=== PATIENT | male | born 1940 | race Caucasian/White ===

== ENCOUNTER 2017-08-12 11:46 | Inpatient (IN) | payer OTHER ==
--- NOTE | 2017-08-12 11:59 | ED Physician Documentation ---
Dyspnea - HISTORIAN Historian: patient - HPI Chief Complaint: Near Syncope Additional Information: 77yo white male who states he came into the ED for dyspnea and syncopal episodes. Has been having some SOB for about 3 years. statest hat he has been doing fairly well until today where he became more SOB. Denies any cough, chest pain/pressure. Denies any wheezing. No fever or chills noted. Is not on oxygen therapy at home. Patient's son relates that he has had 2-3 falls related to getting up at patient 's son over the weekend. Has had 2-3 more episodes over the last 2 days. States that he seems to get dizzy when he changes position some of the time but not all the time. Patient was brought to the ED for further evaluation. Patient denies any discomfort at this time. Patient does seem confused some of the time. He lives at home by himself. Duration: better Initiating Event: denies: upper respiratory illness, out of meds Severity: moderate Exacerbated By: change in position, exertion Associated Symptoms: dizziness, light-headedness. denies: chills, fever, sweating, chest pain, chest discomfort, bloody cough, productive cough, heart racing, leg pain, calf pain - ROS CONST: no problems - PAST HX Lung Disease: COPD, other (seizure disorder) Cardiac Disease: CAD PE Risk Factors: hypertension, other (GERDs) Other History: diabetes Type 2 Immunizations: other Allergies/Adverse Reactions: Allergies Allergy/AdvReac Type Severity Reaction Status Date / Time No Known Allergies Allergy Verified 08/12/17 12:37 Home Medications: Ambulatory Orders Medication Instructions Recorded Divalproex Sodium [Depakote] 4 tab PO DAILY 08/12/17 Isosorbide Mononitrate [Imdur] 2 tab PO DAILY 08/12/17 Pantoprazole Sodium [Protonix] 1 tab PO DAILY 08/12/17 Phenytoin [Dilantin] 2 tab PO QID 08/12/17 Rosuvastatin Calcium [Crestor] 1 tab PO DAILY 08/12/17 Valsartan 1 tab PO DAILY 08/12/17 gliPIZIDE [Glucotrol] 1 tab PO DAILY 08/12/17 Acetaminophen [Tylenol Extra 500 mg PO Q4H PRN tablet 08/18/17 Strength] Azithromycin [Zithromax] 250 mg PO DAILY #3 tablet 08/18/17 Cefdinir 300 mg PO BID #14 capsule 08/18/17 Metoprolol Tartrate [Lopressor] 1 tab PO BID #0 08/18/17 predniSONE [Deltasone] 10 mg PO DIRECTED #31 tablet 08/18/17 - SOCIAL HX Smoking History: non-smoker Alcohol Use: none Drug Use: none - FAMILY HX Family History: no significant history, other (mother 89yo with CAD, Father 92yo advanced age, CAD) - REVIEWED ASSESSMENTS Nursing Assessment Reviewed: Yes Vitals Reviewed: Yes Progress - Progress Progress: 14:20 patient continues to rest quietly - EKG/XRAY/CT EKG: NSR, RBBB, nonspecific ST T wave chg ED Results Lab/Radiology - Radiology Radiology Impressions: Examination: CT head without contrast History: CONFUSION AND WEAKNESS SINCE FALL ON 08/10/17 (Hx) / POST FALL CONFUSION (DICOM Hx) Comparison exam: None available Technique: Noncontrast head CT protocol. Findings: Ventricles and sulci are prominent. Cerebrocerebellar parenchyma demonstrates periventricular low attenuation consistent with small vessel disease. No evidence for parenchymal hemorrhage. No evidence for mass or mass effect. No midline shift. No extra axial fluid collections. Partial visualization of the paranasal sinuses demonstrate scattered mucous thickening. Mastoid air cells, orbits, skull and scalp without gross irregularity. Impression: Age related changes. No acute parenchymal process. No hemorrhage. Examination: Portable chest History: Evaluate lungs. DYSPNEA, COUGH (Hx) Comparison exam: None available. Findings: Single view of the chest demonstrates a hypoventilated inspiratory effort resulting in crowding of the cardiac and mediastinal silhouette. Tortuous aorta. Mild linear fullness at the lung bases bilaterally. No blunting of the costophrenic margins. Left-sided cardiac pacemaker. Articular degenerative changes. Impression: Poor inspiratory effort resulting in crowding of the basilar interstitium/vasculature. No evidence for effusion. Dyspnea Physical Exam - EXAM General Appearance: alert, mild distress EENT: eye inspection normal, ENT inspection normal Neck: nml inspection Respiratory: no pain on inspiration, speaks full sentences, respiratory distress (mild) CVS: reg. rate & rhythm, no murmur, no gallop, no friction rub, pulses full, pulses equal Abdomen: non-tender, no organomegaly, no distention, no ascites Neuro/Psych: oriented x3, CN's nml as tested, motor nml, sensation nml, mood/ affect nml Discharge Clincal Impression: Pneumonia Qualifiers: Laterality: bilateral Lung location: lower lobe of lung Condition: Stable Disposition: 09 ADMITTED INPATIENT Decision to Admit: [id number] Date of Decison to Admit: 08/11/17 Decision Time: 16:05
[2017-08-12 12:34] LABS: MEAN CORPUSCULAR HEMOGLOBIN 30.5 pg (28.0-34.0); MEAN CORPUSCULAR VOLUME 92.8 fl (80.0-100.0)
[2017-08-12 12:35] LABS: BASOPHILS % 0.9 (0.0-1.5); MONOCYTES % 5.8 % (0.0-11.0); NEUTROPHILS # 5.4 # k/uL (1.4-7.7)
[2017-08-12 12:41] LABS: eGFR (African) > 60; eGFR (Non-African) > 60
--- NOTE | 2017-08-12 13:19 | Diagnostic Imaging Report ---
EAN FELIPE [facility] [address] [facility] [address] [place], [place]. [address] Report Submission Date: Aug 12, 2017 1:01:56 PM SALES PERFORMANCE MANAGER Patient Study Name: KELSEA FLANAGAN Date: Aug 12, 2017 12:38:17 PM SALES PERFORMANCE MANAGER Modality Type: CT\SR Gender: M Description: CT HEAD W/O CONTRAST : 40 Institution: [facility] Physician: AEN FELIPE Examination: CT head without contrast History: CONFUSION AND WEAKNESS SINCE FALL ON 08/10/17 (Hx) / POST FALL CONFUSION (DICOM Hx) Comparison exam: None available Technique: Noncontrast head CT protocol. Findings: Ventricles and sulci are prominent. Cerebrocerebellar parenchyma demonstrates periventricular low attenuation consistent with small vessel disease. No evidence for parenchymal hemorrhage. No evidence for mass or mass effect. No midline shift. No extra axial fluid collections. Partial visualization of the paranasal sinuses demonstrate scattered mucous thickening. Mastoid air cells, orbits, skull and scalp without gross irregularity. Impression: Age related changes. No acute parenchymal process. No hemorrhage. Electronically signed on Aug 12, 2017 1:01:56 PM SALES PERFORMANCE MANAGER by: Artur REYES
[2017-08-12] MEDS ORDERED: 0.9 % SODIUM CHLORIDE 0 ML IV ONE (13:39)
[2017-08-12] MEDS ORDERED: 0.9 % SODIUM CHLORIDE 500 ML IV SCH ×2 (14:00→16:00)
--- NOTE | 2017-08-12 14:16 | Diagnostic Imaging Report ---
EAN FELIPE [facility] [address] [facility] [address] [address] Report Submission Date: Aug 12, 2017 1:31:15 PM STUDENT SPECIALIST Patient Study Name: KELSEA FLANAGAN Date: Aug 12, 2017 1:12:41 PM STUDENT SPECIALIST Modality Type: DX Gender: M Description: CHEST : 40 Institution: [facility] Physician: EAN FELIPE Examination: Portable chest History: Evaluate lungs. DYSPNEA, COUGH (Hx) Comparison exam: None available. Findings: Single view of the chest demonstrates a hypoventilated inspiratory effort resulting in crowding of the cardiac and mediastinal silhouette. Tortuous aorta. Mild linear fullness at the lung bases bilaterally. No blunting of the costophrenic margins. Left-sided cardiac pacemaker. Articular degenerative changes. Impression: Poor inspiratory effort resulting in crowding of the basilar interstitium/vasculature. No evidence for effusion. Electronically signed on Aug 12, 2017 1:31:15 PM STUDENT SPECIALIST by: Artur REYES
[2017-08-12] MEDS ORDERED: cefTRIAXone SODIUM 1 GM VIAL ONE (15:37)
[2017-08-12] MEDS: cefTRIAXone SODIUM 1 GM in 0.9 % SODIUM CHLORIDE 100 ML IV SCH (15:50)
--- NOTE | 2017-08-12 16:00 | Diagnostic Imaging Report ---
EAN FELIPE [facility] [address] [facility] [address] [address] Report Submission Date: Aug 12, 2017 3:16:55 PM BOBBIN CLEANER HAND Patient Study Name: KELSEA FLANAGAN Date: Aug 12, 2017 2:18:57 PM BOBBIN CLEANER HAND Modality Type: CT\SR Gender: M Description: : 40 Institution: [facility] Physician: EAN FELIPE Examination: CT chest pulmonary embolism History: DYSPNEA; ELEVATED D DIMER; PE PROTOCOL (Hx) / ELEVATED D DIMER; DYSPNEA (DICOM Hx) Comparison exam: Plain film chest dated 12 August 2017. Technique: CT chest pulmonic pulmonary embolism protocol. Findings: No evidence for luminal filling defect within the main pulmonary arteries to the 3rd order branch vessels bilaterally. Limited evaluation of the basilar vasculature due to infiltrates. Thoracic aorta without aneurysmal dilation. No evidence for dissection flap. Peripheral atherosclerotic disease and mural thickening. Bibasilar scarring and infiltrates. Posterior pleural thickening. Apical emphysematous changes. No mediastinal or hilar mass or pathologic adenopathy. Cardiac silhouette not enlarged. No pericardial effusion. Osseous structures demonstrate degenerative changes. Lower neck structures and axilla regions are without gross irregularity. Numerous renal peripelvic cysts. Liver demonstrates diffuse low attenuation. Right hepatic lobe cyst. No other acute upper abdominal abnormality. Impression: No evidence for pulmonary embolism by CT criteria. No evidence for thoracic aortic dissection or abnormality. Lung base parenchymal scarring and infiltrates. Pleural thickening without gross effusion. Electronically signed on Aug 12, 2017 3:16:55 PM BOBBIN CLEANER HAND by: Artur REYES
[2017-08-12] MEDS: IPRATROPIUM/ALBUTEROL SULFATE 3 ML AMPUL.NEB NEB SCH ×2 (16:37→20:48)
[2017-08-12 17:00] VITALS: BMI 34.5
--- NOTE | 2017-08-12 17:33 | History and Physical Report ---
History of Present Illnes - History of Present Illness Reason for Visit: syncope and dyspnea History of Present Illness: 77yo white male who states he came into the ED for dyspnea and syncopal episodes. Has been having some SOB for about 3 years. statest hat he has been doing fairly well until today where he became more SOB. Denies any cough, chest pain/pressure. Denies any wheezing. No fever or chills noted. Is not on oxygen therapy at home. Patient's son relates that he has had 2-3 falls related to getting up at patient 's son over the weekend. Has had 2-3 more episodes over the last 2 days. States that he seems to get dizzy when he changes position some of the time but not all the time. Patient denies any tachycardia bradycardia. Patient denies any previous syncopal episode. Patient does have a seizure disorder but states that the episodes were not like his usual seizures. Patient only has approximately one seizure every six years. Patient is diabetic that he denies any hypoglycemic episodes. Patient has been taken his anticonvulsant medications. Patient is currently taking antihypertensive medication. Patient was brought to the ED for further evaluation. Patient denies any discomfort at this time. Patient does seem confused some of the time. He lives at home by himself. 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 (last seizure 4-5 years ago) Gastrointestinal: GERD Endocrine: Diabetes (type 2) - Past Surgical History Past Surgical History: Other (cardiac stenting) - Past Family History Mother Family History: CAD, (89yo) Father Family History: CAD, (92yo advanced age) - Past Social History Smoke: # pack years (60-70 pack year history), No, Quit (1989) Occupation: retired Alcohol: None Drugs: None Lives: Other (with significant other) - Health Maintenance Health Maintenance: Influenza Vaccine, Pneumococcal Vaccine Influenza Vaccine: Current for this Influenza Season Pneumonia Vaccine: Yes Resuscitation Status: Resusciation Status Resuscitation Status Do Not Resuscitate - Unable to Obtain History Unable to Obtain: Yes Review of Systems - Review of Systems Constitutional: negative: Fever, Chills, Weakness Eyes: negative: pain, vision change ENT: negative: Ear Pain, Ear Discharge, Nose Pain, Nose Discharge, Nose Congestion, Mouth Pain, Mouth Swelling, Throat Pain, Throat Swelling Respiratory: Cough, Dry, Shortness of Breath, SOB with Excertion. negative: Hemoptysis, Pleuritic Pain, Sputum, Wheezing Cardiovascular: Orthopnea, Light Headedness. negative: Chest Pain, Palpitations , Paroxysmal Noc. Dyspnea, Edema Gastrointestinal: negative: Nausea, Vomiting, Abdominal Pain, Diarrhea, Constipation, Melena, Hematochezia Genitourinary: negative: Dysuria, Frequency, Incontinence, Hematuria, Retention Musculoskeletal: negative: Neck Pain, Shoulder Pain, Arm Pain, Back Pain Skin: negative: Rash, Lesions Neurological: Seizures. negative: Weakness, Numbness, Incoordination, Change in Speech, Confusion - Medications/Allergies Allergies/Adverse Reactions: Allergies Allergy/AdvReac Type Severity Reaction Status Date / Time No Known Allergies Allergy Verified 08/12/17 12:37 Home Medications: Home Medications Divalproex Sodium [Depakote] 4 tab PO DAILY 08/12/17 Isosorbide Mononitrate [Imdur] 2 tab PO DAILY 08/12/17 Pantoprazole Sodium [Protonix] 1 tab PO DAILY 08/12/17 Phenytoin [Dilantin] 2 tab PO QID 08/12/17 Rosuvastatin Calcium [Crestor] 1 tab PO DAILY 08/12/17 Valsartan 1 tab PO DAILY 08/12/17 gliPIZIDE [Glucotrol] 1 tab PO DAILY 08/12/17 Current Inpatient Medications: Current Inpatient Medications Albuterol/Ipratropium (Duoneb) 3 ml NEB Q4 [facility] Last Admin: 08/12/17 16:37 Dose: 3 ml Enoxaparin Sodium (Lovenox) 30 mg SQ QD [facility] Stop: 08/25/17 17:01 Glipizide (Glucotrol) mg PO DAILY [facility] Sodium Chloride (Normal Saline) 500 mls @ 1,000 mls/hr IV .Q1H [facility] Last Admin: 08/12/17 15:20 Dose: 1,000 mls/hr Ceftriaxone Sodium 1 gm/ (Sodium Chloride) 100 mls @ 200 mls/hr IV Q24H [facility] Last Admin: 08/12/17 15:50 Dose: 200 mls/hr Sodium Chloride (Normal Saline) 1,000 mls @ 100 mls/hr IV Q10H [facility] Insulin Human Regular (Humulin R) 0 - 12 unit SQ CHEMX3 [facility] PRN Reason: Protocol Isosorbide Mononitrate (Imdur) mg PO DAILY [facility] Miscellaneous (Chem Sticks) 1 each CHEMQID [facility] Phenytoin Sodium (Dilantin) 200 mg PO QID [facility] Exam - Exam Vital Signs: Vital Signs (72 hours) 08/12/17 08/12/17 15:59 16:00 Temperature 97.9 F Pulse Rate 81 Pulse Rate [ 78 Left Pulse ox] Pulse Rate [ 76 Right] Respiratory 18 19 Rate Blood Pressure 133/55 133/64 [Right Arm] O2 Sat by Pulse 95 92 Oximetry General: Alert, Oriented to Person, Oriented to Place, Oriented to Time, Cooperative, Other (patient seems to have some mild confusion at times. ) HEENT: Atraumatic, PERRLA, EOMI, Mouth Mucous membr. moist/[place], Nose Mucous membr. moist/[place], Poor Dentition Neck: Normal Range of Motion Carotids: WNL Thyroid: WNL Lungs: Normal air movement, Speaks full Sentences, Rales (in bases bialterally) . No: Wheezes, Rhonchi Cardiovascular: Regular rate, Normal S1, Normal S2, No murmurs. No: Rubs, Murmur Abdomen: Normal bowel sounds, Soft, No tenderness, No hepatospenomegaly, No masses Integumentary: Normal, [place], Warm, Dry Extremities: No clubbing, No cyanosis, No edema, Normal pulses, No tenderness/ swelling Neurological: Normal gait, Normal speech, Strength Equal Bilat, Normal tone, Sensation intact, Cranial nerves 3-12 NL, Reflexes 2+ Psych/Mental Status: Mental status NL, Mood NL, Appropriate Affect, Intact Judgment Assessment/Plan - Assessment/Plan (1) Pneumonia Status: Acute Current Visit: Yes Qualifiers: Laterality: bilateral Lung location: lower lobe of lung Assessment: Mild hypoxemia Plan: IV antibiotics, HFN treatments, supplemental oxygen therapy as needed. (2) Orthostatic hypotension Status: Acute Current Visit: Yes Plan: Will hold blood pressure meds. Will try to hydrate well. (3) COPD (chronic obstructive pulmonary disease) Status: Chronic Current Visit: Yes Qualifiers: Emphysema type: panlobular (4) Seizure Status: Chronic Current Visit: Yes Plan: will continue with anticonvulsant meds. monitor for seizure activity. (5) Diabetes type 2, controlled Status: Chronic Current Visit: Yes Qualifiers: Diabetes mellitus complication status: without complication Diabetes mellitus termite exterminator insulin use: without [facility] use Qualified Code(s): E11.9 - Type 2 diabetes mellitus without complications Assessment: Will continue with home meds. Monitor blood sugars. Will start sliding scale insulin. VTE Assessment - RISK FACTOR SCORE VTE RISK FACTOR SCORES: AGE OVER 60 YEARS, ANTICIPATED BED CONFINEMENT OR IMMOBILIZATION > 24 HOURS - RISK VTE MODERATE RISK: SCORE OF 2 (RISK PROXIMAL DVT 2-4%) PROPHYAXIS NEEDED ( Prophalxis needed)
[2017-08-12] MEDS: 0.9 % SODIUM CHLORIDE 1,000 ML IV SCH (18:09)
[2017-08-12] MEDS: PHENYTOIN SODIUM EXTENDED 100 MG CAPSULE PO SCH ×2 (18:09→19:39)
[2017-08-12] MEDS: ENOXAPARIN SODIUM 30 MG/0.3 ML DISP.SYRIN SQ SCH (18:10)
[2017-08-12] MEDS: INSULIN REGULAR, HUMAN 100 UNIT/ML 3ML VIAL SQ SCH (18:11)
[2017-08-12] MEDS: VALPROIC ACID (AS SODIUM SALT) 250 MG/5 ML BOTTLE PO SCH (19:41)
[2017-08-12 20:40] LABS: VALPROIC ACID LEVEL 64.9 ug/mL (50.0-100.0)
[2017-08-13] MEDS: IPRATROPIUM/ALBUTEROL SULFATE 3 ML AMPUL.NEB NEB SCH ×6 (00:27→20:26)
[2017-08-13 03:49] LABS: APPEARANCE,URINE Clear (CLEAR); COLOR,URINE Yellow (YELLOW); OCCULT BLOOD,URINE Negative (NEGATIVE); PH URINE 5.5 (5.0 - 8.0); UROBILINOGEN URINE 0.2 Eu (0.2-1.0)
[2017-08-13] MEDS: 0.9 % SODIUM CHLORIDE 1,000 ML IV SCH ×2 (04:04→13:55)
[2017-08-13 05:18] LABS: BASOPHILS % 0.9 (0.0-1.5); EOSINOPHILS % 0.2 % (0.0-6.8); MEAN CORPUSCULAR HEMOGLOBIN 30.1 pg (28.0-34.0); MEAN CORPUSCULAR VOLUME 91.1 fl (80.0-100.0); MONOCYTES % 9.2 % (0.0-11.0); NEUTROPHILS # 3.4 # k/uL (1.4-7.7)
[2017-08-13 05:25] LABS: eGFR (African) > 60; eGFR (Non-African) > 60
[2017-08-13] MEDS: INSULIN REGULAR, HUMAN 100 UNIT/ML 3ML VIAL SQ SCH ×3 (07:56→16:09)
--- NOTE | 2017-08-13 08:53 | Inpatient Progress Note ---
Subjective - Required Recertification Statement I anticipate X number of days because-include discharge plan: 2 days - Review of Systems Events since last encounter: Patient states that he is feeling some better today. Less dyspnea noted. Has not has any further syncopal or near syncopal episodes noted. Patient is on 4 liters of oxygen at this time. Pulmonary: Dyspnea Cardiovascular: Denies: Chest Pain, Palpitations, Orthopnea Gastrointestinal: Denies: Nausea, Vomiting Objective - Exam Vitals and I&O: Vital Signs Temp 100.0 F H 08/13/17 06:00 Pulse 77 08/13/17 06:30 Resp 20 08/13/17 06:00 BP 130/70 08/13/17 04:04 Pulse Ox 93 08/13/17 06:00 Intake & Output 08/12/17 08/12/17 08/13/17 11:59 23:59 11:59 Intake Total 400 1074 Balance 400 1074 Weight 112.491 kg 110.9 kg Intake: IV 400 774 Left Forearm 400 774 Oral 300 Other: Voiding Method Diaper Diaper # Voids 2 General: Alert, Oriented to Person, Oriented to Place, Oriented to Time, Cooperative Neck: Supple, No JVD Lungs: Normal air movement, Rhonchi (course bilateral). No: Wheezes Cardiovascular: Regular rate, Normal S1, Normal S2, No murmurs Abdomen: Normal bowel sounds, Soft, No tenderness Extremities: No clubbing, Other (trace edema) Skin: Normal, [place], Warm, Dry Neurological: Normal gait, Normal speech, Strength Equal Bilat - Results Results: Laboratory Results WBC 5.80 K/ul (4.00-12.00) 08/13/17 05:10 RBC 4.39 M/ul (3.90-5.20) 08/13/17 05:10 Hgb 13.2 g/dL (12.0-18.0) 08/13/17 05:10 Hct 40.0 % (37.0-53.0) 08/13/17 05:10 MCV 91.1 fl (80.0-100.0) 08/13/17 05:10 MCH 30.1 pg (28.0-34.0) 08/13/17 05:10 MCHC 33.0 g/dL (30.0-36.0) 08/13/17 05:10 RDW 14.3 % (11.3-14.3) 08/13/17 05:10 Plt Count 97 K/mm3 (130-400) L 08/13/17 05:10 Neut % (Auto) 58.9 % (39.0-79.0) 08/13/17 05:10 Lymph % (Auto) 28.7 % (16.0-50.0) 08/13/17 05:10 [place] % (Auto) 9.2 % (0.0-11.0) 08/13/17 05:10 Eos % (Auto) 0.2 % (0.0-6.8) 08/13/17 05:10 Baso % (Auto) 0.9 (0.0-1.5) 08/13/17 05:10 Neut # (Auto) 3.4 # k/uL (1.4-7.7) 08/13/17 05:10 Lymph # (Auto) 1.7 # k/uL (0.6-4.0) 08/13/17 05:10 [place] # (Auto) 0.5 # k/uL (0.0-0.9) 08/13/17 05:10 Eos # (Auto) 0.0 # k/uL (0.0-0.6) 08/13/17 05:10 Baso # (Auto) 0.0 # k/uL (0.0-0.5) 08/13/17 05:10 Reactive Lymphs % 2.0 % (0.0-5.0) 08/13/17 05:10 Reactive Lymphs # 0.1 # k/uL (0.0-0.8) 08/13/17 05:10 D-Dimer 877 ng/mL (6.0-682) H 08/12/17 12:20 Sodium 140 mmol/L (136-145) 08/13/17 05:10 Potassium 3.3 mmol/L (3.5-5.1) L 08/13/17 05:10 Chloride 103 mmol/L (98-107) 08/13/17 05:10 Carbon Dioxide 27 mmol/L (22-30) 08/13/17 05:10 BUN 19 mg/dL (9-20) 08/13/17 05:10 Creatinine 0.90 mg/dL (0.66-1.25) 08/13/17 05:10 Estimated Creat Clear 109 08/13/17 05:10 Est GFR ( Amer) > 60 (60-) 08/13/17 05:10 Est GFR (Non-Af Amer) > 60 (60-) 08/13/17 05:10 Glucose 156 mg/dL (74-106) H 08/13/17 05:10 Calcium 7.4 mg/dL (8.4-10.2) L 08/13/17 05:10 Total Bilirubin 0.6 mg/dL (0.2-1.3) 08/13/17 05:10 AST 25 U/L (15-46) 08/13/17 05:10 ALT 27 U/L (13-69) 08/13/17 05:10 Alkaline Phosphatase 63 U/L (38-126) 08/13/17 05:10 Troponin I < 0.03 ng/mL (0.03-0.06) L 08/12/17 12:20 NT-Pro-B Natriuret Pep 439.4 pg/mL (15.0-450.0) 08/12/17 12:20 Total Protein 5.6 g/dL (6.3-8.2) L 08/13/17 05:10 Albumin 3.0 g/dL (3.5-5.0) L 08/13/17 05:10 Urine Color Yellow (YELLOW) 08/12/17 03:45 Urine Appearance Clear (CLEAR) 08/12/17 03:45 Urine pH 5.5 (5.0 - 8.0) 08/12/17 03:45 Ur Specific [place] 1.020 (1.010-1.030) 08/12/17 03:45 Urine Protein Trace mg/dL (NEGATIVE) 08/12/17 03:45 Urine Ketones Negative mg/dL (NEGATIVE) 08/12/17 03:45 Urine Occult Blood Negative (NEGATIVE) 08/12/17 03:45 Urine Nitrite Negative (NEGATIVE) 08/12/17 03:45 Urine Bilirubin Negative (NEGATIVE) 08/12/17 03:45 Urine Urobilinogen 0.2 Eu (0.2-1.0) 08/12/17 03:45 Ur Leukocyte Esterase Negative (NEGATIVE) 08/12/17 03:45 Urine Glucose Negative mg/dL (NEGATIVE) 08/12/17 03:45 Phenytoin 4.7 ug/mL (10.0-20.0) L 08/12/17 16:00 Valproic Acid 64.9 ug/mL (50.0-100.0) 08/12/17 16:00 Assessment/Plan - Assessment/Plan (1) Pneumonia Status: Acute Current Visit: Yes Qualifiers: Laterality: bilateral Lung location: lower lobe of lung Assessment: stable to improving, will continue with present treatments (2) Orthostatic hypotension Status: Acute Current Visit: Yes Assessment: improved (3) COPD (chronic obstructive pulmonary disease) Status: Chronic Current Visit: Yes Qualifiers: Emphysema type: panlobular (4) Seizure Status: Chronic Current Visit: Yes Assessment: stable (5) Diabetes type 2, controlled Status: Chronic Current Visit: Yes Qualifiers: Diabetes mellitus complication status: without complication Diabetes mellitus alf insulin use: without alf use Qualified Code(s): E11.9 - Type 2 diabetes mellitus without complications Assessment: running in the upper 100 to low 200 range
[2017-08-13] MEDS ORDERED: ISOSORBIDE MONONITRATE 30 MG TAB.ER.24H PO SCH (09:00)
[2017-08-13] MEDS: ISOSORBIDE MONONITRATE 30 MG TAB.ER.24H PO SCH (10:13)
[2017-08-13] MEDS: PHENYTOIN SODIUM EXTENDED 100 MG CAPSULE PO SCH ×4 (10:14→19:55)
[2017-08-13] MEDS: CALCIUM/VIT D 500MG/200IU TABLET PO SCH ×2 (10:15→19:41)
[2017-08-13] MEDS: VALPROIC ACID (AS SODIUM SALT) 250 MG/5 ML BOTTLE PO SCH (10:17)
[2017-08-13] MEDS ORDERED: VALPROIC ACID (AS SODIUM SALT) 250 MG/5 ML BOTTLE PO ONE (13:13)
[2017-08-13] MEDS ORDERED: 0.9 % SODIUM CHLORIDE 100 ML IV ONE (13:52)
[2017-08-13] MEDS: cefTRIAXone SODIUM 1 GM in 0.9 % SODIUM CHLORIDE 100 ML IV SCH (16:07)
[2017-08-13] MEDS: ENOXAPARIN SODIUM 30 MG/0.3 ML DISP.SYRIN SQ SCH (16:10)
[2017-08-13] MEDS: VALPROIC ACID 250 MG/5 ML PO SCH (19:42)
[2017-08-13] MEDS: [UNRECOGNIZED DRUG - OTHER] PO SCH (19:42)
[2017-08-13] MEDS: ACETAMINOPHEN 500 MG TABLET PO PRN (20:26)
[2017-08-14] MEDS: IPRATROPIUM/ALBUTEROL SULFATE 3 ML AMPUL.NEB NEB SCH ×6 (01:54→21:10)
--- NOTE | 2017-08-14 06:23 | Diagnostic Imaging Report ---
[facility]MED SURG [facility] [address] [facility] [address] [address] Report Submission Date: Aug 14, 2017 6:20:00 AM BRUSH SANDER Patient Study Name: KELSEA FLANAGAN Date: Aug 14, 2017 5:56:54 AM BRUSH SANDER Modality Type: DX Gender: M Description: CHEST : 40 Institution: [facility] Physician: [facility] /MED SURG HISTORY: 77-year-old male with shortness of breath. COMPARISON: None available TECHNIQUE: Single portable AP view of the chest was performed. FINDINGS: There is a left chest pacemaker. There is mild central pulmonary vascular congestion. No pneumothorax or consolidative infiltrates. The heart is borderline enlarged. IMPRESSION: Mild central pulmonary vascular congestion suggestive of mild CHF. Electronically signed on Aug 14, 2017 6:20:00 AM BRUSH SANDER by: [place] REYES
[2017-08-14 07:15] LABS: BASOPHILS % 0.6 (0.0-1.5); EOSINOPHILS % 0.1 % (0.0-6.8); MEAN CORPUSCULAR HEMOGLOBIN 30.1 pg (28.0-34.0); MEAN CORPUSCULAR VOLUME 92.9 fl (80.0-100.0); MONOCYTES % 5.3 % (0.0-11.0); NEUTROPHILS # 2.1 # k/uL (1.4-7.7)
[2017-08-14 07:32] LABS: eGFR (African) > 60; eGFR (Non-African) > 60
[2017-08-14] MEDS: INSULIN REGULAR, HUMAN 100 UNIT/ML 3ML VIAL SQ SCH ×3 (07:39→17:20)
--- NOTE | 2017-08-14 08:30 | Inpatient Progress Note ---
Subjective - Required Recertification Statement I anticipate X number of days because-include discharge plan: 1 day - Review of Systems Events since last encounter: Patient states that he is feeling some better. Is still having some SOB with going to the bathroom. Cough seems to be improved some but still present. Has been eating well. Has had BM. Plan is for him to return home on dismissal. Is still having some lightheadedness with orthostatic changes but is better. General: Denies: Chills Pulmonary: Dyspnea, Cough Cardiovascular: Orthopnea. Denies: Chest Pain, Palpitations Gastrointestinal: Denies: Nausea, Abdominal Pain Objective - Exam Vitals and I&O: Vital Signs Temp 99.4 F 08/14/17 06:00 Pulse 80 08/14/17 06:30 Resp 24 08/14/17 06:00 BP 141/73 08/14/17 06:00 Pulse Ox 93 08/14/17 06:00 Intake & Output 08/13/17 08/13/17 08/14/17 11:59 23:59 11:59 Intake Total 1405 1020 200 Output Total 600 Balance 1405 420 200 Weight 110.9 kg 106.8 kg Intake: IV 1105 100 Left Forearm 1095 Right Hand 10 100 Oral 300 920 200 Output: Urine 600 Other: Voiding Method Urinal Urinal Urinal # Voids 2 1 1 General: Alert, Oriented to Person. No: Oriented to Place, Oriented to Time Neck: Supple Lungs: Normal air movement Cardiovascular: Regular rate, Normal S1, Normal S2, No murmurs Abdomen: Normal bowel sounds, Soft, No tenderness Skin: Normal, [place], Warm, Dry Neurological: Normal gait, Normal speech, Strength Equal Bilat Psych/Mental Status: Mental status NL, Mood NL. No: Intact Judgment - Results Results: Laboratory Results WBC 4.20 K/ul (4.00-12.00) 08/14/17 06:45 RBC 4.47 M/ul (3.90-5.20) 08/14/17 06:45 Hgb 13.5 g/dL (12.0-18.0) 08/14/17 06:45 Hct 41.5 % (37.0-53.0) 08/14/17 06:45 MCV 92.9 fl (80.0-100.0) 08/14/17 06:45 MCH 30.1 pg (28.0-34.0) 08/14/17 06:45 MCHC 32.4 g/dL (30.0-36.0) 08/14/17 06:45 RDW 14.2 % (11.3-14.3) 08/14/17 06:45 Plt Count 85 K/mm3 (130-400) L 08/14/17 06:45 Neut % (Auto) 50.5 % (39.0-79.0) 08/14/17 06:45 Lymph % (Auto) 40.4 % (16.0-50.0) 08/14/17 06:45 [place] % (Auto) 5.3 % (0.0-11.0) 08/14/17 06:45 Eos % (Auto) 0.1 % (0.0-6.8) 08/14/17 06:45 Baso % (Auto) 0.6 (0.0-1.5) 08/14/17 06:45 Neut # (Auto) 2.1 # k/uL (1.4-7.7) 08/14/17 06:45 Lymph # (Auto) 1.7 # k/uL (0.6-4.0) 08/14/17 06:45 [place] # (Auto) 0.2 # k/uL (0.0-0.9) 08/14/17 06:45 Eos # (Auto) 0.0 # k/uL (0.0-0.6) 08/14/17 06:45 Baso # (Auto) 0.0 # k/uL (0.0-0.5) 08/14/17 06:45 Reactive Lymphs % 3.1 % (0.0-5.0) 08/14/17 06:45 Reactive Lymphs # 0.1 # k/uL (0.0-0.8) 08/14/17 06:45 D-Dimer 877 ng/mL (6.0-682) H 08/12/17 12:20 Sodium 140 mmol/L (136-145) 08/14/17 06:45 Potassium 3.7 mmol/L (3.5-5.1) 08/14/17 06:45 Chloride 103 mmol/L (98-107) 08/14/17 06:45 Carbon Dioxide 28 mmol/L (22-30) 08/14/17 06:45 BUN 16 mg/dL (9-20) 08/14/17 06:45 Creatinine 0.80 mg/dL (0.66-1.25) 08/14/17 06:45 Estimated Creat Clear 116 08/14/17 06:45 Est GFR ( Amer) > 60 (60-) 08/14/17 06:45 Est GFR (Non-Af Amer) > 60 (60-) 08/14/17 06:45 Glucose 161 mg/dL (74-106) H 08/14/17 06:45 Calcium 7.6 mg/dL (8.4-10.2) L 08/14/17 06:45 Total Bilirubin 0.6 mg/dL (0.2-1.3) 08/14/17 06:45 AST 30 U/L (15-46) 08/14/17 06:45 ALT 33 U/L (13-69) 08/14/17 06:45 Alkaline Phosphatase 64 U/L (38-126) 08/14/17 06:45 Troponin I < 0.03 ng/mL (0.03-0.06) L 08/12/17 12:20 NT-Pro-B Natriuret Pep 439.4 pg/mL (15.0-450.0) 08/12/17 12:20 Total Protein 5.5 g/dL (6.3-8.2) L 08/14/17 06:45 Albumin 3.0 g/dL (3.5-5.0) L 08/14/17 06:45 Urine Color Yellow (YELLOW) 08/12/17 03:45 Urine Appearance Clear (CLEAR) 08/12/17 03:45 Urine pH 5.5 (5.0 - 8.0) 08/12/17 03:45 Ur Specific [place] 1.020 (1.010-1.030) 08/12/17 03:45 Urine Protein Trace mg/dL (NEGATIVE) 08/12/17 03:45 Urine Ketones Negative mg/dL (NEGATIVE) 08/12/17 03:45 Urine Occult Blood Negative (NEGATIVE) 08/12/17 03:45 Urine Nitrite Negative (NEGATIVE) 08/12/17 03:45 Urine Bilirubin Negative (NEGATIVE) 08/12/17 03:45 Urine Urobilinogen 0.2 Eu (0.2-1.0) 08/12/17 03:45 Ur Leukocyte Esterase Negative (NEGATIVE) 08/12/17 03:45 Urine Glucose Negative mg/dL (NEGATIVE) 08/12/17 03:45 Phenytoin 4.7 ug/mL (10.0-20.0) L 08/12/17 16:00 Valproic Acid 64.9 ug/mL (50.0-100.0) 08/12/17 16:00 Assessment/Plan - Assessment/Plan (1) Pneumonia Status: Acute Current Visit: Yes Qualifiers: Laterality: bilateral Lung location: lower lobe of lung (2) Orthostatic hypotension Status: Acute Current Visit: Yes Assessment: stable, patient is still on 4 liter of oxygen. We will try to start to taper oxygen today. Trying to arrange for home care, either SNF here or at home in [place]. Will continue with antibiotics and HFN. May need to give some steroids. (3) COPD (chronic obstructive pulmonary disease) Status: Chronic Current Visit: Yes Qualifiers: Emphysema type: panlobular (4) Seizure Status: Chronic Current Visit: Yes Assessment: stable, Dilantin level is subtherapeutic, no recent dose change. No seizures for several years. (5) Diabetes type 2, controlled Status: Chronic Current Visit: Yes Qualifiers: Diabetes mellitus complication status: without complication Diabetes mellitus mcfp insulin use: without mcfp use Qualified Code(s): E11.9 - Type 2 diabetes mellitus without complications Assessment: BS in mid to upper 100 rnge, will continue with sliding scale. (6) Memory deficit Status: Acute Current Visit: Yes Assessment: I beleive that patinet may be developing some dementia problems. I have talked to son about this. Patient will adress this with PCP upon returning home. Advised to consider getting POA in place if needed.
[2017-08-14] MEDS: PHENYTOIN SODIUM EXTENDED 100 MG CAPSULE PO SCH ×4 (09:12→20:38)
[2017-08-14] MEDS: ISOSORBIDE MONONITRATE 30 MG TAB.ER.24H PO SCH (09:12)
[2017-08-14] MEDS ORDERED: VALPROIC ACID (AS SODIUM SALT) 250 MG/5 ML BOTTLE PO ONE ×2 (09:20→14:53)
[2017-08-14] MEDS: CALCIUM/VIT D 500MG/200IU TABLET PO SCH ×2 (09:22→20:38)
[2017-08-14] MEDS: VALPROIC ACID 250 MG/5 ML PO SCH ×2 (09:22→20:38)
[2017-08-14] MEDS: [UNRECOGNIZED DRUG - OTHER] PO SCH ×2 (09:22→20:38)
[2017-08-14] MEDS ORDERED: 0.9 % SODIUM CHLORIDE 100 ML IV ONE (14:53)
[2017-08-14] MEDS ORDERED: cefTRIAXone SODIUM 1 GM VIAL ONE (14:53)
[2017-08-14] MEDS: cefTRIAXone SODIUM 1 GM in 0.9 % SODIUM CHLORIDE 100 ML IV SCH (17:17)
[2017-08-14] MEDS: ENOXAPARIN SODIUM 30 MG/0.3 ML DISP.SYRIN SQ SCH (17:18)
[2017-08-14] MEDS ORDERED: AZITHROMYCIN 500 MG VIAL IV ONE (20:39)
[2017-08-14] MEDS ORDERED: 0.9 % SODIUM CHLORIDE 250 ML IV ONE (20:39)
[2017-08-14] MEDS: AZITHROMYCIN 500 MG in 0.9 % SODIUM CHLORIDE 250 ML IV SCH (20:51)
[2017-08-15] MEDS: IPRATROPIUM/ALBUTEROL SULFATE 3 ML AMPUL.NEB NEB SCH ×6 (01:45→21:22)
[2017-08-15] MEDS ORDERED: VALPROIC ACID (AS SODIUM SALT) 250 MG/5 ML BOTTLE PO ONE ×3 (05:46→22:22)
[2017-08-15] MEDS: INSULIN REGULAR, HUMAN 100 UNIT/ML 3ML VIAL SQ SCH ×3 (07:58→17:52)
[2017-08-15] MEDS: PHENYTOIN SODIUM EXTENDED 100 MG CAPSULE PO SCH ×4 (09:02→21:12)
[2017-08-15] MEDS: CALCIUM/VIT D 500MG/200IU TABLET PO SCH ×2 (09:03→21:09)
[2017-08-15] MEDS: VALPROIC ACID 250 MG/5 ML PO SCH ×2 (09:03→21:09)
[2017-08-15] MEDS: ISOSORBIDE MONONITRATE 30 MG TAB.ER.24H PO SCH (09:03)
[2017-08-15] MEDS: [UNRECOGNIZED DRUG - OTHER] PO SCH ×2 (09:03→21:09)
[2017-08-15] MEDS: VALSARTAN 80 MG TABLET PO SCH (09:09)
--- NOTE | 2017-08-15 10:02 | Inpatient Progress Note ---
Subjective - Required Recertification Statement I anticipate X number of days because-include discharge plan: 3 - Review of Systems Events since last encounter: Patient feeling better. Appetite improving. Maybe a little less SOB. Objective - Exam Vitals and I&O: Vital Signs Temp 98.7 F 08/15/17 02:00 Pulse 74 08/15/17 06:00 Resp 20 08/15/17 06:00 BP 178/99 08/15/17 06:00 Pulse Ox 92 08/15/17 06:00 Intake & Output 08/14/17 08/14/17 08/15/17 11:59 23:59 11:59 Intake Total 320 580 720 Balance 320 580 720 Weight 106.8 kg 107.955 kg Intake: IV 100 Right Wrist 100 Oral 320 480 720 Other: Voiding Method Urinal Toilet # Voids 1 4 1 General: Alert, Oriented to Person, Oriented to Place, Oriented to Time, Cooperative, No acute distress Lungs: Wheezes, Rhonchi Cardiovascular: Regular rate - Results Results: Laboratory Results WBC 4.20 K/ul (4.00-12.00) 08/14/17 06:45 RBC 4.47 M/ul (3.90-5.20) 08/14/17 06:45 Hgb 13.5 g/dL (12.0-18.0) 08/14/17 06:45 Hct 41.5 % (37.0-53.0) 08/14/17 06:45 MCV 92.9 fl (80.0-100.0) 08/14/17 06:45 MCH 30.1 pg (28.0-34.0) 08/14/17 06:45 MCHC 32.4 g/dL (30.0-36.0) 08/14/17 06:45 RDW 14.2 % (11.3-14.3) 08/14/17 06:45 Plt Count 85 K/mm3 (130-400) L 08/14/17 06:45 Neut % (Auto) 50.5 % (39.0-79.0) 08/14/17 06:45 Lymph % (Auto) 40.4 % (16.0-50.0) 08/14/17 06:45 [place] % (Auto) 5.3 % (0.0-11.0) 08/14/17 06:45 Eos % (Auto) 0.1 % (0.0-6.8) 08/14/17 06:45 Baso % (Auto) 0.6 (0.0-1.5) 08/14/17 06:45 Neut # (Auto) 2.1 # k/uL (1.4-7.7) 08/14/17 06:45 Lymph # (Auto) 1.7 # k/uL (0.6-4.0) 08/14/17 06:45 [place] # (Auto) 0.2 # k/uL (0.0-0.9) 08/14/17 06:45 Eos # (Auto) 0.0 # k/uL (0.0-0.6) 08/14/17 06:45 Baso # (Auto) 0.0 # k/uL (0.0-0.5) 08/14/17 06:45 Reactive Lymphs % 3.1 % (0.0-5.0) 08/14/17 06:45 Reactive Lymphs # 0.1 # k/uL (0.0-0.8) 08/14/17 06:45 D-Dimer 877 ng/mL (6.0-682) H 08/12/17 12:20 Sodium 140 mmol/L (136-145) 08/14/17 06:45 Potassium 3.7 mmol/L (3.5-5.1) 08/14/17 06:45 Chloride 103 mmol/L (98-107) 08/14/17 06:45 Carbon Dioxide 28 mmol/L (22-30) 08/14/17 06:45 BUN 16 mg/dL (9-20) 08/14/17 06:45 Creatinine 0.80 mg/dL (0.66-1.25) 08/14/17 06:45 Estimated Creat Clear 116 08/14/17 06:45 Est GFR ( Amer) > 60 (60-) 08/14/17 06:45 Est GFR (Non-Af Amer) > 60 (60-) 08/14/17 06:45 Glucose 161 mg/dL (74-106) H 08/14/17 06:45 Calcium 7.6 mg/dL (8.4-10.2) L 08/14/17 06:45 Total Bilirubin 0.6 mg/dL (0.2-1.3) 08/14/17 06:45 AST 30 U/L (15-46) 08/14/17 06:45 ALT 33 U/L (13-69) 08/14/17 06:45 Alkaline Phosphatase 64 U/L (38-126) 08/14/17 06:45 Troponin I < 0.03 ng/mL (0.03-0.06) L 08/12/17 12:20 NT-Pro-B Natriuret Pep 439.4 pg/mL (15.0-450.0) 08/12/17 12:20 Total Protein 5.5 g/dL (6.3-8.2) L 08/14/17 06:45 Albumin 3.0 g/dL (3.5-5.0) L 08/14/17 06:45 Urine Color Yellow (YELLOW) 08/12/17 03:45 Urine Appearance Clear (CLEAR) 08/12/17 03:45 Urine pH 5.5 (5.0 - 8.0) 08/12/17 03:45 Ur Specific [place] 1.020 (1.010-1.030) 08/12/17 03:45 Urine Protein Trace mg/dL (NEGATIVE) 08/12/17 03:45 Urine Ketones Negative mg/dL (NEGATIVE) 08/12/17 03:45 Urine Occult Blood Negative (NEGATIVE) 08/12/17 03:45 Urine Nitrite Negative (NEGATIVE) 08/12/17 03:45 Urine Bilirubin Negative (NEGATIVE) 08/12/17 03:45 Urine Urobilinogen 0.2 Eu (0.2-1.0) 08/12/17 03:45 Ur Leukocyte Esterase Negative (NEGATIVE) 08/12/17 03:45 Urine Glucose Negative mg/dL (NEGATIVE) 08/12/17 03:45 Phenytoin 4.7 ug/mL (10.0-20.0) L 08/12/17 16:00 Valproic Acid 64.9 ug/mL (50.0-100.0) 08/12/17 16:00 Assessment/Plan - Assessment/Plan (1) Pneumonia Status: Acute Current Visit: Yes Qualifiers: Laterality: bilateral Lung location: lower lobe of lung Plan: Continue IV antibiotics. Switch to oral as soon as able. (2) COPD (chronic obstructive pulmonary disease) Status: Chronic Current Visit: Yes Qualifiers: Emphysema type: panlobular Plan: Due to h/o smoking (though quit 1992) and O2 requirement with wheezing I am going to try IV steroids. Watch BS with DM. 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
[2017-08-15] MEDS: methylPREDNISolone SOD SUCC 40 MG/ML VIAL IVP SCH ×2 (12:18→21:13)
[2017-08-15] MEDS: cefTRIAXone SODIUM 1 GM in 0.9 % SODIUM CHLORIDE 100 ML IV SCH (16:39)
[2017-08-15] MEDS: ENOXAPARIN SODIUM 30 MG/0.3 ML DISP.SYRIN SQ SCH (17:53)
[2017-08-15] MEDS: AZITHROMYCIN 500 MG in 0.9 % SODIUM CHLORIDE 250 ML IV SCH (19:59)
[2017-08-16] MEDS: IPRATROPIUM/ALBUTEROL SULFATE 3 ML AMPUL.NEB NEB SCH ×6 (01:48→21:22)
[2017-08-16 06:35] LABS: BASOPHILS % 0.7 (0.0-1.5); EOSINOPHILS % 0.1 % (0.0-6.8); MEAN CORPUSCULAR HEMOGLOBIN 30.1 pg (28.0-34.0); MEAN CORPUSCULAR VOLUME 92.8 fl (80.0-100.0); MONOCYTES % 5.2 % (0.0-11.0); NEUTROPHILS # 1.2 # k/uL (1.4-7.7)
[2017-08-16 07:05] LABS: eGFR (African) > 60; eGFR (Non-African) > 60
[2017-08-16] MEDS: INSULIN REGULAR, HUMAN 100 UNIT/ML 3ML VIAL SQ SCH ×3 (08:25→17:03)
--- NOTE | 2017-08-16 08:37 | Inpatient Progress Note ---
Subjective - Required Recertification Statement I anticipate X number of days because-include discharge plan: 2 days - Review of Systems Events since last encounter: patient seems to be doing better at this time. Still is getting SOB with ambultion to the bathrooom. Mentation seems to be some betters. Has a nonproductive cough. General: Denies: Chills Pulmonary: Dyspnea, Cough Cardiovascular: Denies: Chest Pain, Palpitations Gastrointestinal: Denies: Nausea, Vomiting, Abdominal Pain, Diarrhea, Constipation, Melena Objective - Exam Vitals and I&O: Vital Signs Temp 97.6 F 08/16/17 06:00 Pulse 82 08/16/17 06:00 Resp 16 08/16/17 06:00 BP 148/72 08/16/17 06:00 Pulse Ox 92 08/16/17 06:00 Intake & Output 08/15/17 08/15/17 08/16/17 11:59 23:59 11:59 Intake Total 720 1080 1260 Balance 720 1080 1260 Weight 107.955 kg 107.955 kg Intake: Oral 720 1080 1260 Other: Voiding Method Toilet Toilet # Voids 1 3 3 General: Alert, Oriented to Person, Oriented to Place, Cooperative. No: Oriented to Time Neck: Supple, No JVD Lungs: Normal air movement, Respiratory Distress, Rales (bases bilaterally), Rhonchi (few right) Cardiovascular: Regular rate, Normal S1, Normal S2, No murmurs Abdomen: Normal bowel sounds, Soft, No tenderness Skin: Normal, [place], Warm, Dry Psych/Mental Status: Mental status NL, Mood NL, Appropriate Affect - Results Results: Laboratory Results WBC 3.20 K/ul (4.00-12.00) L 08/16/17 06:10 RBC 4.54 M/ul (3.90-5.20) 08/16/17 06:10 Hgb 13.7 g/dL (12.0-18.0) 08/16/17 06:10 Hct 42.1 % (37.0-53.0) 08/16/17 06:10 MCV 92.8 fl (80.0-100.0) 08/16/17 06:10 MCH 30.1 pg (28.0-34.0) 08/16/17 06:10 MCHC 32.4 g/dL (30.0-36.0) 08/16/17 06:10 RDW 14.0 % (11.3-14.3) 08/16/17 06:10 Plt Count 82 K/mm3 (130-400) L 08/16/17 06:10 Neut % (Auto) 36.2 % (39.0-79.0) L 08/16/17 06:10 Lymph % (Auto) 55.1 % (16.0-50.0) H 08/16/17 06:10 [place] % (Auto) 5.2 % (0.0-11.0) 08/16/17 06:10 Eos % (Auto) 0.1 % (0.0-6.8) 08/16/17 06:10 Baso % (Auto) 0.7 (0.0-1.5) 08/16/17 06:10 Neut # (Auto) 1.2 # k/uL (1.4-7.7) L 08/16/17 06:10 Lymph # (Auto) 1.8 # k/uL (0.6-4.0) 08/16/17 06:10 [place] # (Auto) 0.2 # k/uL (0.0-0.9) 08/16/17 06:10 Eos # (Auto) 0.0 # k/uL (0.0-0.6) 08/16/17 06:10 Baso # (Auto) 0.0 # k/uL (0.0-0.5) 08/16/17 06:10 Reactive Lymphs % 2.7 % (0.0-5.0) 08/16/17 06:10 Reactive Lymphs # 0.1 # k/uL (0.0-0.8) 08/16/17 06:10 D-Dimer 877 ng/mL (6.0-682) H 08/12/17 12:20 Sodium 141 mmol/L (136-145) 08/16/17 06:10 Potassium 4.2 mmol/L (3.5-5.1) 08/16/17 06:10 Chloride 104 mmol/L (98-107) 08/16/17 06:10 Carbon Dioxide 28 mmol/L (22-30) 08/16/17 06:10 BUN 12 mg/dL (9-20) 08/16/17 06:10 Creatinine 0.70 mg/dL (0.66-1.25) 08/16/17 06:10 Estimated Creat Clear 134 08/16/17 06:10 Est GFR ( Amer) > 60 (60-) 08/16/17 06:10 Est GFR (Non-Af Amer) > 60 (60-) 08/16/17 06:10 Glucose 206 mg/dL (74-106) H 08/16/17 06:10 Calcium 8.1 mg/dL (8.4-10.2) L 08/16/17 06:10 Total Bilirubin 0.6 mg/dL (0.2-1.3) 08/14/17 06:45 AST 30 U/L (15-46) 08/14/17 06:45 ALT 33 U/L (13-69) 08/14/17 06:45 Alkaline Phosphatase 64 U/L (38-126) 08/14/17 06:45 Troponin I < 0.03 ng/mL (0.03-0.06) L 08/12/17 12:20 NT-Pro-B Natriuret Pep 439.4 pg/mL (15.0-450.0) 08/12/17 12:20 Total Protein 5.5 g/dL (6.3-8.2) L 08/14/17 06:45 Albumin 3.0 g/dL (3.5-5.0) L 08/14/17 06:45 Urine Color Yellow (YELLOW) 08/12/17 03:45 Urine Appearance Clear (CLEAR) 08/12/17 03:45 Urine pH 5.5 (5.0 - 8.0) 08/12/17 03:45 Ur Specific [place] 1.020 (1.010-1.030) 08/12/17 03:45 Urine Protein Trace mg/dL (NEGATIVE) 08/12/17 03:45 Urine Ketones Negative mg/dL (NEGATIVE) 08/12/17 03:45 Urine Occult Blood Negative (NEGATIVE) 08/12/17 03:45 Urine Nitrite Negative (NEGATIVE) 08/12/17 03:45 Urine Bilirubin Negative (NEGATIVE) 08/12/17 03:45 Urine Urobilinogen 0.2 Eu (0.2-1.0) 08/12/17 03:45 Ur Leukocyte Esterase Negative (NEGATIVE) 08/12/17 03:45 Urine Glucose Negative mg/dL (NEGATIVE) 08/12/17 03:45 Phenytoin 4.7 ug/mL (10.0-20.0) L 08/12/17 16:00 Valproic Acid 64.9 ug/mL (50.0-100.0) 08/12/17 16:00 Assessment/Plan - Assessment/Plan (1) Pneumonia Status: Acute Current Visit: Yes Qualifiers: Laterality: bilateral Lung location: lower lobe of lung Assessment: improving, trying to arrange for discharge. I believe patient will need home oxygen for at least a short period of time. (2) Orthostatic hypotension Status: Acute Current Visit: Yes Assessment: Patient is still mildly symptomatic (3) COPD (chronic obstructive pulmonary disease) Status: Chronic Current Visit: Yes Qualifiers: Emphysema type: panlobular Assessment: stable (4) Seizure Status: Chronic Current Visit: Yes Assessment: stable (5) Diabetes type 2, controlled Status: Chronic Current Visit: Yes Qualifiers: Diabetes mellitus complication status: without complication Diabetes mellitus custodial insulin use: without custodial use Qualified Code(s): E11.9 - Type 2 diabetes mellitus without complications Assessment: BS in the mid to high 100 range
[2017-08-16] MEDS: VALPROIC ACID 250 MG/5 ML PO SCH ×2 (09:04→21:15)
[2017-08-16] MEDS: [UNRECOGNIZED DRUG - OTHER] PO SCH ×2 (09:04→21:15)
[2017-08-16] MEDS: CALCIUM/VIT D 500MG/200IU TABLET PO SCH ×2 (09:04→21:15)
[2017-08-16] MEDS: VALSARTAN 80 MG TABLET PO SCH (09:04)
[2017-08-16] MEDS: PHENYTOIN SODIUM EXTENDED 100 MG CAPSULE PO SCH ×4 (09:04→21:19)
[2017-08-16] MEDS: ISOSORBIDE MONONITRATE 30 MG TAB.ER.24H PO SCH (09:04)
[2017-08-16] MEDS: methylPREDNISolone SOD SUCC 40 MG/ML VIAL IVP SCH ×2 (09:26→21:20)
[2017-08-16] MEDS: ACETAMINOPHEN 500 MG TABLET PO PRN ×2 (10:03→15:03)
[2017-08-16] MEDS ORDERED: cefTRIAXone SODIUM 1 GM VIAL ONE (13:20)
[2017-08-16] MEDS ORDERED: VALPROIC ACID (AS SODIUM SALT) 250 MG/5 ML BOTTLE PO ONE ×2 (13:20→22:52)
[2017-08-16] MEDS ORDERED: 0.9 % SODIUM CHLORIDE 100 ML IV ONE (13:21)
[2017-08-16] MEDS: cefTRIAXone SODIUM 1 GM in 0.9 % SODIUM CHLORIDE 100 ML IV SCH (16:36)
[2017-08-16] MEDS: ENOXAPARIN SODIUM 30 MG/0.3 ML DISP.SYRIN SQ SCH (16:58)
[2017-08-16] MEDS: AZITHROMYCIN 500 MG in 0.9 % SODIUM CHLORIDE 250 ML IV SCH (21:19)
[2017-08-17] MEDS: IPRATROPIUM/ALBUTEROL SULFATE 3 ML AMPUL.NEB NEB SCH ×6 (01:09→20:30)
[2017-08-17] MEDS: INSULIN REGULAR, HUMAN 100 UNIT/ML 3ML VIAL SQ SCH ×3 (07:21→17:15)
[2017-08-17] MEDS: VALSARTAN 80 MG TABLET PO SCH (07:40)
[2017-08-17] MEDS: CALCIUM/VIT D 500MG/200IU TABLET PO SCH ×2 (09:25→20:23)
[2017-08-17] MEDS: VALPROIC ACID 250 MG/5 ML PO SCH ×2 (09:25→20:26)
[2017-08-17] MEDS: [UNRECOGNIZED DRUG - OTHER] PO SCH ×2 (09:25→20:26)
[2017-08-17] MEDS: PHENYTOIN SODIUM EXTENDED 100 MG CAPSULE PO SCH ×4 (09:26→20:26)
[2017-08-17] MEDS: ISOSORBIDE MONONITRATE 30 MG TAB.ER.24H PO SCH (09:26)
[2017-08-17] MEDS: methylPREDNISolone SOD SUCC 40 MG/ML VIAL IVP SCH (09:43)
[2017-08-17] MEDS ORDERED: VALPROIC ACID (AS SODIUM SALT) 250 MG/5 ML BOTTLE PO ONE (12:06)
[2017-08-17] MEDS ORDERED: cefTRIAXone SODIUM 1 GM VIAL ONE (12:07)
--- NOTE | 2017-08-17 13:17 | Inpatient Progress Note ---
Subjective - Required Recertification Statement I anticipate X number of days because-include discharge plan: 1 day - Review of Systems Events since last encounter: Patient states that he is doing some better. Cough has greatly improved. Not as SOB as before. Bp continues to slowly climb. No chest pain or pressure noted. Pulmonary: Dyspnea, Cough. Denies: Pleuritic Chest Pain Cardiovascular: Denies: Chest Pain, Palpitations Gastrointestinal: Denies: Nausea, Vomiting, Abdominal Pain Objective - Exam Vitals and I&O: Vital Signs Temp 97.2 F L 08/17/17 10:00 Pulse 73 08/17/17 10:00 Resp 20 08/17/17 10:00 BP 163/118 08/17/17 10:00 Pulse Ox 95 08/17/17 10:00 Intake & Output 08/16/17 08/17/17 08/17/17 23:59 11:59 23:59 Intake Total 1590 840 220 Balance 1590 840 220 Weight 113.398 kg Intake: Oral 1590 840 220 Other: Voiding Method Toilet Toilet # Voids 1 1 General: Alert, Oriented to Person, Oriented to Place, Oriented to Time, Cooperative HEENT: Atraumatic, PERRLA, EOMI, Mouth Mucous membr. moist/[place], Nose Mucous membr. moist/[place] Neck: Supple, No JVD, No thyromegaly Lungs: Normal air movement, Speaks full Sentences, Rales (few in the right base) Cardiovascular: Regular rate, Normal S1, Normal S2, No murmurs Abdomen: Normal bowel sounds, Soft, No tenderness, No hepatospenomegaly, No masses Extremities: No clubbing, No cyanosis, No edema, Normal pulses, No tenderness/ swelling Skin: Normal, [place], Warm, Dry Neurological: Normal gait, Normal speech, Strength Equal Bilat, Normal tone, Sensation intact, Cranial nerves 3-12 NL, Reflexes 2+ Psych/Mental Status: Mental status NL, Mood NL, Appropriate Affect, Intact Judgment - Results Results: Laboratory Results WBC 3.20 K/ul (4.00-12.00) L 08/16/17 06:10 RBC 4.54 M/ul (3.90-5.20) 08/16/17 06:10 Hgb 13.7 g/dL (12.0-18.0) 08/16/17 06:10 Hct 42.1 % (37.0-53.0) 08/16/17 06:10 MCV 92.8 fl (80.0-100.0) 08/16/17 06:10 MCH 30.1 pg (28.0-34.0) 08/16/17 06:10 MCHC 32.4 g/dL (30.0-36.0) 08/16/17 06:10 RDW 14.0 % (11.3-14.3) 08/16/17 06:10 Plt Count 82 K/mm3 (130-400) L 08/16/17 06:10 Neut % (Auto) 36.2 % (39.0-79.0) L 08/16/17 06:10 Lymph % (Auto) 55.1 % (16.0-50.0) H 08/16/17 06:10 [place] % (Auto) 5.2 % (0.0-11.0) 08/16/17 06:10 Eos % (Auto) 0.1 % (0.0-6.8) 08/16/17 06:10 Baso % (Auto) 0.7 (0.0-1.5) 08/16/17 06:10 Neut # (Auto) 1.2 # k/uL (1.4-7.7) L 08/16/17 06:10 Lymph # (Auto) 1.8 # k/uL (0.6-4.0) 08/16/17 06:10 [place] # (Auto) 0.2 # k/uL (0.0-0.9) 08/16/17 06:10 Eos # (Auto) 0.0 # k/uL (0.0-0.6) 08/16/17 06:10 Baso # (Auto) 0.0 # k/uL (0.0-0.5) 08/16/17 06:10 Reactive Lymphs % 2.7 % (0.0-5.0) 08/16/17 06:10 Reactive Lymphs # 0.1 # k/uL (0.0-0.8) 08/16/17 06:10 D-Dimer 877 ng/mL (6.0-682) H 08/12/17 12:20 Sodium 141 mmol/L (136-145) 08/16/17 06:10 Potassium 4.2 mmol/L (3.5-5.1) 08/16/17 06:10 Chloride 104 mmol/L (98-107) 08/16/17 06:10 Carbon Dioxide 28 mmol/L (22-30) 08/16/17 06:10 BUN 12 mg/dL (9-20) 08/16/17 06:10 Creatinine 0.70 mg/dL (0.66-1.25) 08/16/17 06:10 Estimated Creat Clear 134 08/16/17 06:10 Est GFR ( Amer) > 60 (60-) 08/16/17 06:10 Est GFR (Non-Af Amer) > 60 (60-) 08/16/17 06:10 Glucose 206 mg/dL (74-106) H 08/16/17 06:10 Calcium 8.1 mg/dL (8.4-10.2) L 08/16/17 06:10 Total Bilirubin 0.6 mg/dL (0.2-1.3) 08/14/17 06:45 AST 30 U/L (15-46) 08/14/17 06:45 ALT 33 U/L (13-69) 08/14/17 06:45 Alkaline Phosphatase 64 U/L (38-126) 08/14/17 06:45 Troponin I < 0.03 ng/mL (0.03-0.06) L 08/12/17 12:20 NT-Pro-B Natriuret Pep 439.4 pg/mL (15.0-450.0) 08/12/17 12:20 Total Protein 5.5 g/dL (6.3-8.2) L 08/14/17 06:45 Albumin 3.0 g/dL (3.5-5.0) L 08/14/17 06:45 Urine Color Yellow (YELLOW) 08/12/17 03:45 Urine Appearance Clear (CLEAR) 08/12/17 03:45 Urine pH 5.5 (5.0 - 8.0) 08/12/17 03:45 Ur Specific [place] 1.020 (1.010-1.030) 08/12/17 03:45 Urine Protein Trace mg/dL (NEGATIVE) 08/12/17 03:45 Urine Ketones Negative mg/dL (NEGATIVE) 08/12/17 03:45 Urine Occult Blood Negative (NEGATIVE) 08/12/17 03:45 Urine Nitrite Negative (NEGATIVE) 08/12/17 03:45 Urine Bilirubin Negative (NEGATIVE) 08/12/17 03:45 Urine Urobilinogen 0.2 Eu (0.2-1.0) 08/12/17 03:45 Ur Leukocyte Esterase Negative (NEGATIVE) 08/12/17 03:45 Urine Glucose Negative mg/dL (NEGATIVE) 08/12/17 03:45 Phenytoin 4.7 ug/mL (10.0-20.0) L 08/12/17 16:00 Valproic Acid 64.9 ug/mL (50.0-100.0) 08/12/17 16:00 Assessment/Plan - Assessment/Plan (1) Pneumonia Status: Acute Current Visit: Yes Qualifiers: Laterality: bilateral Lung location: lower lobe of lung Assessment: Oxygen requirements improving. Patient is up ambulating some at this time. Plan: Hope to discharge tomorrow. (2) Orthostatic hypotension Status: Acute Current Visit: Yes Assessment: improved at this time. 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
[2017-08-17] MEDS: METOPROLOL TARTRATE 50 MG TABLET PO SCH ×2 (13:38→20:25)
[2017-08-17] MEDS: ENOXAPARIN SODIUM 30 MG/0.3 ML DISP.SYRIN SQ SCH (16:46)
[2017-08-17] MEDS ORDERED: predniSONE 20 MG TABLET PO ONE (17:24)
[2017-08-17] MEDS: predniSONE 10 MG TABLET PO SCH (20:23)
[2017-08-17] MEDS: AZITHROMYCIN 250 MG TABLET PO SCH (20:23)
[2017-08-17] MEDS: CEFDINIR 300 MG CAPSULE PO SCH (20:23)
[2017-08-18] MEDS: IPRATROPIUM/ALBUTEROL SULFATE 3 ML AMPUL.NEB NEB SCH ×5 (01:13→17:16)
[2017-08-18] MEDS ORDERED: predniSONE 20 MG TABLET PO ONE (02:09)
[2017-08-18] MEDS ORDERED: VALPROIC ACID (AS SODIUM SALT) 250 MG/5 ML BOTTLE PO ONE (02:11)
--- NOTE | 2017-08-18 08:48 | Discharge Summary ---
Discharge Summary - Discharge Sumary History of Present Illness: 77yo white male who states he came into the ED for dyspnea and syncopal episodes. Has been having some SOB for about 3 years. statest hat he has been doing fairly well until today where he became more SOB. Denies any cough, chest pain/pressure. Denies any wheezing. No fever or chills noted. Is not on oxygen therapy at home. Patient's son relates that he has had 2-3 falls related to getting up at patient 's son over the weekend. Has had 2-3 more episodes over the last 2 days. States that he seems to get dizzy when he changes position some of the time but not all the time. Patient denies any tachycardia bradycardia. Patient denies any previous syncopal episode. Patient does have a seizure disorder but states that the episodes were not like his usual seizures. Patient only has approximately one seizure every six years. Patient is diabetic that he denies any hypoglycemic episodes. Patient has been taken his anticonvulsant medications. Patient is currently taking antihypertensive medication. Patient was brought to the ED for further evaluation. Patient denies any discomfort at this time. Patient does seem confused some of the time. He lives at home by himself. Condition at Discharge: Stable Home Medications: Ambulatory Orders Medication Instructions Recorded Divalproex Sodium [Depakote] 4 tab PO DAILY 08/12/17 Isosorbide Mononitrate [Imdur] 2 tab PO DAILY 08/12/17 Pantoprazole Sodium [Protonix] 1 tab PO DAILY 08/12/17 Phenytoin [Dilantin] 2 tab PO QID 08/12/17 Rosuvastatin Calcium [Crestor] 1 tab PO DAILY 08/12/17 Valsartan 1 tab PO DAILY 08/12/17 gliPIZIDE [Glucotrol] 1 tab PO DAILY 08/12/17 Acetaminophen [Tylenol Extra 500 mg PO Q4H PRN tablet 08/18/17 Strength] Azithromycin [Zithromax] 250 mg PO DAILY #3 tablet 08/18/17 Cefdinir 300 mg PO BID #14 capsule 08/18/17 Metoprolol Tartrate [Lopressor] 1 tab PO BID #0 08/18/17 predniSONE [Deltasone] 10 mg PO DIRECTED #31 tablet 08/18/17 Consultations this Visit: None Procedures this Visit: None Allergies/Adverse Reactions: Allergies Allergy/AdvReac Type Severity Reaction Status Date / Time No Known Allergies Allergy Verified 08/12/17 12:37 Patient Problems: Current Active Problems Problem Status Onset Memory deficit Acute Orthostatic hypotension Acute Pneumonia Acute COPD (chronic obstructive pulmonary disease) Chronic Diabetes type 2, controlled Chronic Seizure Chronic Discharge Summary: Patient was admitted to the hospital tunnel -negative patient treatments of doing them every four hours. Patient was started on some IV steroid therapy and IV fluids. Patient had to be maintained on oxygen in order to keep as SaO2 greater than 90%. Patient did have to go up to four leaders at one time. Patient was started on IV antibiotic therapy of azithromycin and Rocephin. Over the course of the next several days patient breathing status did slowly improve. At the time to discharge patient with maintaining his oxygenation greater than 92% on room air both with the rest and with ambulation. It was felt that the patient could be safely discharged home on oral antibiotics and oral steroids. Patient did have some orthostatic symptoms and changes in his blood pressure. Initially patient was discontinued off of his antihypertensive medication. However during the course of hospitalization did had to be reinstituted because of patient blood pressure increasing. At the time to discharge patient denies the with have any further orthostatic symptoms. Patient did appear to be having some been patient and cognition difficulties. I did talk to the patient some about this in the hip noted that he had been having some problems. Advised that the patient may be developing some early dementia. Patient will follow up with his primary care provider about this. Patient diabetes mellitus remains stable with blood pressure is running in the mid to upper 100 range. Patient did not have any hypoglycemic episodes. Patient was continued on his home diabetic medication. Patient has a history of seizure disorder but did not have any seizures during his hospitalization. Patient Dilantin level was noted to be some subtherapeutic. Patient was advised to follow up with his primary care provider about this. Patient is not had any seizures in several years so his dosage was not adjusted. Coronary artery disease remains stable without any chest pain or chest pressure. - Final Diagnosis (1) Pneumonia Problems: improved (2) Orthostatic hypotension Problems: improved (3) COPD (chronic obstructive pulmonary disease) Problems: stable (4) Seizure Problems: stable (5) Diabetes type 2, controlled Problems: stable
[2017-08-18] MEDS: INSULIN REGULAR, HUMAN 100 UNIT/ML 3ML VIAL SQ SCH ×3 (08:56→17:16)
[2017-08-18] MEDS: PHENYTOIN SODIUM EXTENDED 100 MG CAPSULE PO SCH ×3 (09:28→17:16)
[2017-08-18] MEDS: CEFDINIR 300 MG CAPSULE PO SCH (09:28)
[2017-08-18] MEDS: CALCIUM/VIT D 500MG/200IU TABLET PO SCH (09:29)
[2017-08-18] MEDS: [UNRECOGNIZED DRUG - OTHER] PO SCH (09:29)
[2017-08-18] MEDS: ISOSORBIDE MONONITRATE 30 MG TAB.ER.24H PO SCH (09:29)
[2017-08-18] MEDS: VALSARTAN 80 MG TABLET PO SCH (09:29)
[2017-08-18] MEDS: METOPROLOL TARTRATE 50 MG TABLET PO SCH (09:29)
[2017-08-18] MEDS: VALPROIC ACID 250 MG/5 ML PO SCH (09:29)
[2017-08-18] MEDS: AZITHROMYCIN 250 MG TABLET PO SCH (09:30)
[2017-08-18] MEDS: predniSONE 10 MG TABLET PO SCH (09:34)
[2017-08-18 15:54] VITALS: BP 153/89
[2017-08-18] MEDS: ENOXAPARIN SODIUM 30 MG/0.3 ML DISP.SYRIN SQ SCH (17:17)
== END 2017-08-18 17:00 | disposition home or self-care (01) | DRG 190 ==
LOC: ED 11:46 → SOUTH 15:33
PROVIDERS: ADMIT Family Medicine; ATTEND Family Medicine
DX: J44.1 Chronic obstructive pulmonary disease with (acute) exacerbation (principal); J18.9 Pneumonia, unspecified organism; G40.89 Other seizures; I95.1 Orthostatic hypotension; I10 Essential (primary) hypertension; E11.9 Type 2 diabetes mellitus without complications; I25.10 Atherosclerotic heart disease of native coronary artery without angina pectoris; Z87.891 Personal history of nicotine dependence
CPT/HCPCS: 36415; 70450; 71045; 71046; 71275; 80048; 80053; 80164; 80185; 81002; 83880; 84484; 85025; 85379; 87040; 93005; 94640; 94760; 97116; 97161; 97535; J0456; J0696; J1030; J1650; J1815; J7030; J7050; J7512; 96365; 96366; 99222; 99232; 99238; 99284; J2920; Q9967; S1016